=== PATIENT | female | born 2005 | race Hispanic/Latino ===

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

== ENCOUNTER 2025-01-05 22:31 | Day surgery (SDC) | payer OTHER ==
[2025-01-05 22:43] VITALS: BMI 33.5
[2025-01-05] MEDS ORDERED: Lactated Ringer's 1,000 ML IV SCH (23:15)
[2025-01-05] MEDS: Ondansetron ODT 4 MG TAB SL PRN (23:49)
[2025-01-05] MEDS: Acetaminophen 500 MG TAB PO SCH (23:50)
[2025-01-05 23:51] VITALS: BP 116/56; TEMP 98.6
== END 2025-01-06 00:45 | disposition home or self-care (01) ==
LOC: CSHLD/OP 22:31
PROVIDERS: ATTEND Family Medicine
DX: O36.8120 Decreased fetal movements, second trimester, not applicable or unspecified (principal); O99.212 Obesity complicating pregnancy, second trimester; E66.811 Obesity, class 1; O99.012 Anemia complicating pregnancy, second trimester; O35.2XX0 Maternal care for (suspected) hereditary disease in fetus, not applicable or unspecified; O99.712 Diseases of the skin and subcutaneous tissue complicating pregnancy, second trimester; L05.91 Pilonidal cyst without abscess; O21.2 Late vomiting of pregnancy; Z3A.25 25 weeks gestation of pregnancy; Z79.899 Other long term (current) drug therapy
CPT/HCPCS: 87428; 99283; Q0162